=== PATIENT | male | born 1935 | race African-American/Black ===

== ENCOUNTER 2021-02-08 08:54 | Inpatient (IN) | payer OTHER ==
[~2021-02-08] VITALS: Ht 162.6 cm; Wt 77.1 kg
--- NOTE | ~2021-02-08 | HC ---
[facility] [place] [address] CONSULTATION Name: EMILE VEGAS Room #: 205-P ADM IN M.R.#: [id number] Admission: 02/08/21 Attend Phys: Noé Elias MD Discharge: Date of : 37 Report #: [id number] THIS REPORT FOR: cc: Porfirio Lewis MD, Eric K. MD Khosla, Parveen K. MD ~ DATE OF SERVICE: 02/08/2021 HISTORY OF PRESENT ILLNESS: This is an 85-year-old male patient who was seen by me because of the right sided weakness. He is a poor historian. Most of the history is from the records. It looks like this patient presented to [facility] with right sided weakness, but he was outside the window for any TPA that is what I get from the records. 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 If I understand the record correctly, they decided that the patient is not an intervention candidate and they admitted him and a routine consult was requested in this patient to continue neurology care in this patient. He is a poor historian, but looks like the history is pretty extensive in this patient. He apparently has a thrombus and he is chronically anticoagulated with Xarelto. He has a history of hypertension, hyperlipidemia, cardiomyopathy, chronic kidney disease, gout, glaucoma, prostate cancer s/p post radiation now. The patient has multiple comorbidities. He also has a prior history of [place]. REVIEW OF SYSTEMS: This was his relevant 14-point review of system, which was carried out. Review of system is also positive for gout and diabetes. PAST MEDICAL HISTORY: Positive for cardiac problems. FAMILY HISTORY: Unremarkable. SOCIAL HISTORY: He drinks very rarely. PHYSICAL EXAMINATION: Indicates he was alert, responsive, able to sometimes follow commands, sometimes not. I can tell his memory and his speech is affected. There is a stent on the left side. It was about grade II to grade III/V and I tried to do the position sense. He did not understand the instructions. That is all the examination I could carry out in this patient. His blood pressure was 151/80, respirations 18, pulse is 75, temperature is 97.9. LABORATORY DATA: White count is 6.6. CT angiogram does show a pretty significant stenosis on the left side. IMPRESSION AND RECOMMENDATIONS: This patient does appear to have a pretty significant disease on the left side, it is in the [place] [address] CONSULTATION Name: EMILE VEGAS Room #: [facility] IN .R.#: [id number] Admission: 02/08/21 Attend Phys: Noé Elias MD Discharge: Date of : 37 Report #: [id number] that is probably the cause of his stroke rather than any embolus from the heart. He is already on anticoagulation and aspirin has been added. A limited thing can be done in this patient except he can go to rehab when he stabilizes. Thank you very much for this referral. By: [id number] Jd Vivas MD /nt
[2021-02-08 08:54] VITALS: BP 184/98
[~2021-02-08 08:54] MED LIST: ADULT LOW DOSE81 MG PO; ANTIVERT25 MG PO; CARVEDILOL3.125 MG PO; COLCRYS 0.6 MG0.6 MG PO; COLCRYS0.6 MG PO; COMBIGAN EYE DR10 ML OPHTHALMIC; COUMADIN 1MG TAB1 M1 PO; COZAAR 25 MG TA25 M1 PO; FENOFIBRATE134 MG PO; OXYCODONE-ACET1 EACH PO; RAPAFLO8 MG PO; SIMVASTATIN40 MG PO; TIMOLOL MA0.5 %/5 M2 OPHTHALMIC; TRAVATAN Z5 ML OPHTHALMIC; ULTRAM 50MG TAB50 MG PO; XARELTO20 MG PO; ZESTRIL5 MG PO
[2021-02-08 09:06] LABS: ABSOLUTE NEUTROPHILS 7.4 thou/uL (1.4-8.2); BASOPHILS 0.3 % (0.0-2.0); EOSINOPHILS 0.3 % (0.0-3.0); HEMATOCRIT 50.1 % (42.0-52.0); HEMOGLOBIN 16.2 gm/dL (14.0-18.0); LYMPHOCYTES 18.3 % (24.0-44.0); MCH 28.7 pg (26.0-34.0); MCHC 32.4 g/dL (28.0-37.0); MCV 88.6 fL (80.0-100.0); MONOCYTES 7.6 % (1.0-8.0); PLATELET COUNT 202 thou/uL (150-400); POLYS 73.5 % (36.0-66.0); RBC 5.66 mil/uL (4.50-6.00); RDW 14.6 % (10.5-14.5); WBC 10.1 thou/uL (4.0-11.0)
[2021-02-08 09:16] LABS: CALCIUM 9.1 mg/dL (8.5-10.1); CREATININE 1.2 mg/dL (0.7-1.3); POTASSIUM 3.7 mmol/L (3.5-5.1)
[2021-02-08 09:33] LABS: ALBUMIN 3.6 g/dL (3.4-5.0); TOTAL BILIRUBIN 1.2 mg/dL (0.2-1.0)
[2021-02-08 09:41] LABS: APTT 31.5 Seconds (24.5-32.8); INR 1.02; PROTIME 11.1 Seconds (10.5-12.1)
--- NOTE | 2021-02-08 10:04 | NUR ---
SWALLOW STUDY DEFERRED AT THIS TIME D/T PT NIH SCORE AND DYSPHAGIA.
[2021-02-08] MEDS ORDERED: CARVEDILOL6.25 M1 PO (12:27)
[2021-02-08] MEDS ORDERED: JANUVIA100 MG PO (12:27)
[2021-02-08] MEDS ORDERED: LOSARTAN POTASS50 MG PO (12:27)
[2021-02-08 12:33] VITALS: BP 149/87
--- NOTE | 2021-02-08 12:58 | EKG ---
[address] [address] [facility] [place] [address] ELECTROCARDIOGRAM REPORT Name: EMILE VEGAS Room #: [facility] [id number] Admission: 02/08/21 Attend Phys: Discharge: Date of : 39 Report #: [id number] [facility] ED Test Date: 2021-02-08 Test Time: 08:56:11 Pat Name: EMILE VEGAS Department: Room: Gender: M Seo Consultant: BUSTER : [id number] Requested By: Dale Lomeli Order Number: [id number] MD: Jhon Solares Measurements Intervals Mary [place] Rate: 90 P: 111 IN: 189 QRS: -19 QRSD: 107 T: 155 QT: 354 QTc: 433 Interpretive Statements Sinus rhythm LVH with secondary repolarization abnormality Compared to ECG 03/29/2014 22:29:46 Poor R-wave progression no longer present T-wave abnormality no longer present Electronically Signed On 02-08-2021 12:58:49 CDT by Jhon Solares [email or web address] <ELECTRONICALLY SIGNED> By: Jhon Solares MD, [facility] 02/08/21 1258 [phone] Jhon Solares MD, FACC /EPI
[2021-02-08 13:13] VITALS: BP 133/80
[2021-02-08 13:30] VITALS: BP 133/79
--- NOTE | 2021-02-08 17:31 | NUR ---
[age] YEAR OLD MALE ADMITTED TO 2N ROOM 205. PT WAS BROUGHT INTO THE ER PER DAUGHTER THIS MORNING DUE TO HAVING SLURRED SPEECH AND WEAKNESS. PT IS ALERT AND ORIENTED TIMES FOUR. VSS. PT DENIES PAIN/SOA. PT NPO AT THIS TIME. PT SON AND DAUGHTER AT BEDSIDE DURING ADMISSION ASSESSMENT. WILL CONTINUE TO MONITOR.
[2021-02-08 19:54] VITALS: BP 142/62
[2021-02-09 00:05] VITALS: BP 151/80
--- NOTE | 2021-02-09 02:44 | NUR ---
PT IS A/O X4 AND IS ON BEDREST DUE TO RIGHT SIDED WEAKNESS. PT IS ON ROOM AIR. VSS. AFEBRILE. SR ON THE MONITOR. DID HAVE AN 8 BEAT RUN OF VTACH. STRIP IS PRINTED AND PLACED IN CHART. ASYMPTOMATIC. NOTED EXPRESSIVE APHASIA AND DYSPHAGIA. HAS NOT HAD ANYTHING TO EAT OR DRINK THIS SHIFT DUE TO COUGHING AND INABILITY TO SWALLOW WITHOUT COUGHING. VOIDS PER URINAL WITH ASSISTANCE. NO BM THIS SHIFT. PT IS PLEASANT AND COOPERATIVE. VISITED WITH SON AND DAUGHTER IN THE START OF THE SHIFT. DENIES C/O PAIN OR DISCOMFORT. FALL PRECAUTIONS IN PLACE,CALL LIGHT IS WITHIN REACH.
[2021-02-09 05:17] LABS: CALCIUM 9.1 mg/dL (8.5-10.1); CREATININE 1.2 mg/dL (0.7-1.3); POTASSIUM 3.7 mmol/L (3.5-5.1)
[2021-02-09 05:29] LABS: ABSOLUTE NEUTROPHILS 4.2 thou/uL (1.4-8.2); BASOPHILS 0.2 % (0.0-2.0); HEMATOCRIT 45.8 % (42.0-52.0); LYMPHOCYTES 26.8 % (24.0-44.0); MCH 29.4 pg (26.0-34.0); MCHC 32.8 g/dL (28.0-37.0); MCV 89.6 fL (80.0-100.0); MONOCYTES 8.6 % (1.0-8.0); PLATELET COUNT 194 thou/uL (150-400); POLYS 63.4 % (36.0-66.0); RBC 5.11 mil/uL (4.50-6.00); RDW 14.8 % (10.5-14.5); WBC 6.6 thou/uL (4.0-11.0)
[2021-02-09 05:44] LABS: CHOLESTEROL 162 mg/dL (<200); HDL CHOLESTEROL 31 mg/dL (>40); LDL CHOLESTEROL 111 mg/dL (<100); TC:HDL 5.2 Ratio (Not establshd); TRIGLYCERIDE 101 mg/dL (<150); VLDL 20 mg/dL (<40)
[2021-02-09 06:03] LABS: SERUM ASSESSMENT Clear
[2021-02-09 07:15] VITALS: BP 116/72
[2021-02-09 09:18] LABS: FOLIC ACID 7.1 ng/mL (8.6-58.9)
--- NOTE | 2021-02-09 09:41 | NUR ---
PERFORMANCE CONSULTANT TO SEE PATIENT. I RESPONDED TO THE STROKE ACTIVATION YESTERDAY IN THE ER. PT HAD A NIHSS OF 7 AT THAT TIME. TODAY HE APPEARS TO HAVE MORE SEVERE SX. HIS SPEECH IS NEARLY UNINTELLIGIBLE. MODERATE TO SEVERE FACIAL DROOP. PT DID MOVE LEFT UPPER EXT HOWEVER IT DID NOT APPEAR PURPOSFUL. PT LEANING TO LEFT WELL IN CHAIR. DAUGHTER AT BEDSIDE. EDUCATED DAUGHTER ON THE WAXING AND WANING OF SX WITH A CVA. PT ALSO AT BEDSIDE WORKING WITH PATIENT. STROKE EDUCATION BOOKLET GIVEN TO DAUGHTER WITH CURRENT LAB RESULTS DOCUMENTED WITHIN. PLAN FOR MRI TODAY. WILL CONTINUE TO FOLLOW.
[2021-02-09 11:20] VITALS: BP 139/75
--- NOTE | 2021-02-09 14:04 | 2DMMODE ---
[facility] [place] [address] 2 D/M-MODE ECHOCARDIOGRAM Name: EMILE VEGAS Room #: 205-P ADM IN M.R.#: [id number] Admission: 02/08/21 Attend Phys: Noé Elias MD Discharge: Date of : 37 Report #: [id number] THIS REPORT FOR: cc: Porfirio Lewis MD, Eric K. MD Santiago, Patrick MD FAC ~ APPROVED REPORT Patient Location: Bedside Room #: 205 Stress Nurse: Extremely difficult and limited echo attempted. Very limited views appear to show abnormal left ventricular function. Diminished systolic function, unable to assess ejection fraction [place] appears to be akinetic No pericardial effusion Unable to make further comments Will proceed with Transesophageal Echocardiogram. Conclusion <ELECTRONICALLY SIGNED> By: Jhon Solares MD, FACC 02/09/211402 02 02 Jhon Solares MD, FACC /INF
--- NOTE | 2021-02-09 14:09 | TEE ---
[facility] [place] [address] TRANSESOPHAGEAL ECHOCARDIOGRAM Name: EMILE VEGAS Room #: 205-P ADM IN M.R.#: [id number] Admission: 02/08/21 Attend Phys: Noé Elias MD Discharge: Date of : 37 Report #: [id number] THIS REPORT FOR: cc: Porfirio Lewis MD, Eric K. MD Santiago, Patrick MD [facility] ~ APPROVED REPORT Study performed: 02/09/2021 13:09:39 EXAM: Comprehensive 2D, Doppler, and color-flow Echocardiogram Patient Location: In-Patient Room #: 205 Status: routine BSA: 1.83 HR: 72 bpm BP: 122/61 mmHg Rhythm: NSR Other Information Study Quality: Good Indications CVA/TIA History of left ventricular thrombus Echo Enhancing Agent Indication: Rule out Shunt Agent(s) / Amount(s) Used: Agitated Saline 7 cc Procedure After obtaining informed consent, patient underwent transesophageal echo in the [employer]. Type of Sedation : Conscious Sedation Sedation was administered by Nurse. Sedation start time: 1317 Case end Time: 1325 Sedation was achieved intravenously with: Versed (2 mg) Fentanyl (50 mcg) Transesophageal probe was inserted and advanced into esophagus without difficulty by Jhon Solares MD. Echo enhancement indication: R/O Septal defect. Echo enhancement agent administered: Agitated Saline The GRICELDA was performed without complications. [facility] [address] [place] [address] TRANSESOPHAGEAL ECHOCARDIOGRAM Name: EMILE VEGAS Room #: 205-P ADM IN M.R.#: [id number] Admission: 02/08/21 Attend Phys: Noé Elias, Discharge: Date of : 37 Report #: [id number] Throughout the procedure, the blood pressure, pulse oximetry, cardiac rhythm, and rate were monitored. The patient tolerated the procedure without adverse effects. Recovery from conscious sedation was uneventful and vital signs were stable. Left Ventricle The left ventricle is normal size. There is normal left ventricular wall thickness. Left ventricular ejection fraction is moderately decreased. Large apical thrombus measuring 3cm x 4cm. LVEF is 35%. Right Ventricle The right ventricle is normal size. The right ventricular systolic function is normal. Atria The left atrium size is normal. Interatrial septum is intact without evidence of ASD or PFO. The right atrium size is normal. Aortic Valve The aortic valve is normal in structure. No aortic regurgitation is present. There is no aortic valvular stenosis. Mitral Valve The mitral valve is normal in structure. Trace mitral regurgitation. No evidence of mitral valve stenosis. Tricuspid Valve The tricuspid valve is normal in structure. There is no tricuspid valve regurgitation noted. Pulmonic Valve The pulmonary valve is normal in structure. There is no pulmonic valvular regurgitation. Great Vessels The aortic root is normal in size. Pericardium There is no pericardial effusion. <Conclusion> Timeout was performed Consent was obtained After proper sedation esophageal probe was advanced without [facility] [address] [place] [address] TRANSESOPHAGEAL ECHOCARDIOGRAM Name: EMILE VEGASALD Room #: 205-P [facility] IN M.R.#: [id number] Admission: 02/08/21 Attend Phys: Noé Elias, Discharge: Date of : 37 Report #: [id number] difficulty. Normal left ventricle size/wall thickness Ejection fraction 35% Akinetic apex/distal septum Large/calcified apical clot -3.00 cm x 4.00 cm Left atrial appendage small, no obvious clot detected Normal right ventricle size/function Normal aortic valve structure and function Trace of mitral valve insufficiency No pericardial effusion No evidence of ASD/VSD by color flow/bubble study Normal aortic root size Mild calcification throughout the aorta Patient tolerated the procedure well <ELECTRONICALLY SIGNED> By: Jhon Solares MD, FACC 02/09/218 07 07 Jhon Solares MD, FACC /INF
--- NOTE | 2021-02-09 14:33 | NUR ---
AUTHORIZATION FOR ACUTE REHAB STAY REQUESTED THIS DATE FROM [facility]. PATIENT HAS A MEDICARE PPO PRODUCT AND THE TAX ID NUMBER IS IN NETWORK FOR THE PATIENT. CLINICAL INFORMATION SENT. WILL AWAIT INSURANCE RESPONSE. THANK YOU FOR THIS REFERRAL.
--- NOTE | 2021-02-09 14:36 | NUR ---
PT TOLERATED GRICELDA WELL. PROCEDURE COMPLETED AT 1330. TRANSFER BACK TO CCU AT 1445. VSS. HR 52; BP 137/63; RR 20; SAT 95% ON RA. PT AWAKE AND ALERT. REPORT TO QUAN ALBRECHT. NEW IV STARTED IN AQUATIC LABORER HOLDING 20 GAUGE TO RT FOREARM. RT AC IV FELL OUT. FLUID BOLUS COMPLETED EN ROUTE DOWN TO AQUATIC LABORER. AND 200 CC NS INFUSED DURING PROCEDURE
[2021-02-09 15:34] VITALS: BP 115/75
--- NOTE | 2021-02-09 18:11 | NUR ---
met with patient and dtr at bedside. Patient admits with CVA. 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 Used no assisitive device. Cont to drive. cooked meals, grocery shop, independent with bathing. Dtr lives nearby. Reviewed acute rehab process. Dtr wants to tour acute rehab [facility]. Left message with admissions. Reviewed other options. dtr reports she is familiar with [facility] acute rehab as family member recently ezra. [facility]on in process of eval. Dtr to discuss with her brother.
[2021-02-09 20:45] VITALS: BP 136/77
[2021-02-09 23:39] VITALS: BP 145/95
[2021-02-10 01:06] LABS: GLYCOHEMOGLOBIN (HGB A1C) 6.3 % (4.8-5.6)
--- NOTE | 2021-02-10 02:19 | NUR ---
ASSUMED PT CARE AT 1900, PT IS AWAKE, ALERT AND ORIENTED, NIH SCORE O7 7, DENIES PAIN OR SOB, ASSESSMENTS CHARTED, SR/SB ON TELE, VSS, REMAINS NPO, STARTED ON FLUIDS FOR HYDRATION, BS 83, NO NEEDS AT THIS TIME, WILL CONTINUE TO MONITOR AND FOLLOW POC
[2021-02-10 04:45] VITALS: BP 150/84
[2021-02-10 06:49] LABS: URINE BLOOD TRACE (Negative); URINE CLARITY CLEAR; URINE GLUCOSE-RANDOM* NEGATIVE (Negative); URINE KETONES 2+ (Negative); URINE LEUKOCYTES-REFLEX NEGATIVE (Negative); URINE NITRITE-REFLEX NEGATIVE (Negative); URINE PROTEIN (DIPSTICK) NEGATIVE (Negative); URINE SPECIFIC GRAVITY >= 1.030 (1.005-1.035); URINE UROBILINOGEN >= 8.0 E.U./dl (0.2-1.0)
[2021-02-10 06:50] LABS: URINE COLOR AMBER
[2021-02-10 06:52] LABS: ICTOTEST (BILI CONFIRMATORY) Negative (Negative); URINE BILIRUBIN NEGATIVE (Negative)
[2021-02-10 07:35] VITALS: BP 140/68
[2021-02-10 11:03] VITALS: BP 133/77
[2021-02-10] MEDS ORDERED: MIRALAX17 GM PO (11:28)
[2021-02-10] MEDS ORDERED: TYLENOL325 MG PO (11:28)
[2021-02-10] MEDS ORDERED: CARVEDILOL3.125 MG PO (11:28)
[2021-02-10] MEDS ORDERED: PROTONIX 20 MG20 MG PO (11:28)
--- NOTE | 2021-02-10 13:11 | NUR ---
PATIENT WAS APPROVED FOR INPATIENT ACUTE REHAB ON 02/10/21 BY ANNABELLE ALONZO. AUTH # [id number]. UPDATE REQUIRED ON 02/17/21. FAX #[phone].
--- NOTE | 2021-02-10 13:56 | NUR ---
Kademe walter advised that ins auth rec'd. They can accept today if stable to rm 513. The attending, pt and dtr were notified. Pt cleared for dc to rehab today. Dtr given unit number and rm number as well as aware of team conf on Sunday.
[2021-02-10 16:03] VITALS: BP 158/76
== END 2021-02-10 17:20 | DRG 64 ==
LOC: ER 08:54 → 2N 11:40 → ER 13:21 → 2N 02-10 17:20
PROVIDERS: Emergency Medicine; Nurse Practitioner; ADMIT Internal Medicine; ATTEND Internal Medicine
PROC: B24BZZ4 Ultrasonography of Heart with Aorta, Transesophageal (ICD-10-PCS; principal; 2021-02-09)
DX: I63.512 Cerebral infarction due to unspecified occlusion or stenosis of left middle cerebral artery (principal); R65.11 Systemic inflammatory response syndrome (SIRS) of non-infectious origin with acute organ dysfunction; I42.9 Cardiomyopathy, unspecified; I50.20 Unspecified systolic (congestive) heart failure; G81.91 Hemiplegia, unspecified affecting right dominant side; I13.0 Hypertensive heart and chronic kidney disease with heart failure and stage 1 through stage 4 chronic kidney disease, or unspecified chronic kidney disease; Z20.822 Contact with and (suspected) exposure to COVID-19; E78.00 Pure hypercholesterolemia, unspecified; I25.10 Atherosclerotic heart disease of native coronary artery without angina pectoris; M10.9 Gout, unspecified; N18.9 Chronic kidney disease, unspecified; R47.1 Dysarthria and anarthria; E11.22 Type 2 diabetes mellitus with diabetic chronic kidney disease; E78.5 Hyperlipidemia, unspecified; R13.10 Dysphagia, unspecified; Z60.2 Problems related to living alone; R53.81 Other malaise; E53.8 Deficiency of other specified B group vitamins; Z85.46 Personal history of malignant neoplasm of prostate; I25.2 Old myocardial infarction; Z87.891 Personal history of nicotine dependence; Z92.3 Personal history of irradiation; Z79.82 Long term (current) use of aspirin; Z79.899 Other long term (current) drug therapy
CPT/HCPCS: 10081

== ENCOUNTER 2021-02-10 14:23 | Inpatient (IN) | payer OTHER ==
[~2021-02-10] VITALS: Ht 167.6 cm; Wt 70.8 kg
[~2021-02-10 14:23] MED LIST changes: +CARVEDILOL6.25 M1 PO; +JANUVIA100 MG PO; +LOSARTAN POTASS50 MG PO; +MIRALAX17 GM PO; +PROTONIX 20 MG20 MG PO; +TYLENOL325 MG PO
[2021-02-10 19:49] VITALS: BP 151/80
--- NOTE | 2021-02-11 02:55 | NUR ---
PATIENT CARE WAS RESUMED AT 1900. HE IS ALERT AND ABLE TO VERBALIZE HIS NEEDS. LUNGS ARE CLEAR BS ACTUVE X4 QUADS. MAX ASSIT WITH CARE. SHE IS RESTNG IN BED. HE USES URINAL SPEECH IS VERY SLOW AND SHE IS ON NECTAR THICK LIQUD.HE DENIES [place] PAINS AT THIS TIME. CALL LIGHT AT REACH.
[2021-02-11 06:56] LABS: HEMATOCRIT 44.4 % (42.0-52.0); HEMOGLOBIN 14.6 gm/dL (14.0-18.0); MCH 29.5 pg (26.0-34.0); MCHC 32.9 g/dL (28.0-37.0); MCV 89.4 fL (80.0-100.0); RBC 4.96 mil/uL (4.50-6.00); RDW 14.5 % (10.5-14.5); WBC 7.5 thou/uL (4.0-11.0)
[2021-02-11 07:19] LABS: CALCIUM 8.7 mg/dL (8.5-10.1); POTASSIUM 3.5 mmol/L (3.5-5.1)
[2021-02-11 08:30] VITALS: BP 143/101
--- NOTE | 2021-02-11 09:11 | NUR ---
PT SITTING UP WITH THERAPY ON SIDE OF BED THIS AM. PT NEEDED ASSISTED WITH RT ARM AND LEG. PT ABLE TO SIT SELF UP WITH LEFT ARM HOLDING ONTO THE RAIL. PT WAS ABLE TO TAKE MEDS THIS AM CRUSHED IN APPLESAUCE PT FOLLOWS DIRECTIONS TO TURN HEAD TO RT WHEN SWALLOWING. PT LUNGS CLEAR. NO SIGNS OF EDEMA. PT IS ON NECTOR THICK LIQUIDS AND TOLERATING WELL. PT DOES VOID PER URINAL AND IS TEA COLOR.
--- NOTE | 2021-02-11 09:12 | NUR ---
ADM TYLENOL 325MG 2 TABS PO FOR PAIN TO RT ARM OF 7 ON 1-10 SCALE.
--- NOTE | 2021-02-11 11:29 | NUR ---
met with patient and son jose at bedside. patient admits with CVA. Patient resides in indpendent home with all needs on one level. He has a basement that son reports he does not need to go to basement. 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 Jose and serge Lopez are primary contacts. Patient has children from first who live out of town. Second . Casemgt following for dc planning. Discussed team conferencce with son at bedside.
--- NOTE | 2021-02-11 18:17 | NUR ---
ADM TYLENOL 325MG 2 TABS PO FOR PAIN TO RT ARM. PT FEEDING SELF WITH LEFT ARM. RAISED RT ARM UP ON A PILLOW. PT KNOW TO TURN HEAD TO RT WHEN SWALLOWING. PT WAS UP X2 TO BSC TO VOID. PT THOUGHT HE WOULD HAVE A BM, DID NOT.
[2021-02-11 19:39] VITALS: BP 137/70
--- NOTE | 2021-02-12 02:17 | NUR ---
Pt is alert/oriented, pleasant answers questions appropriately, medications given crushed, Rt side weakness, thicken liquids offered did not want. Encouraged pt to drink. HRR, Lungs clear, BS+ x 4 Q. No other issues or concerns.
[2021-02-12 08:00] VITALS: BP 149/83
--- NOTE | 2021-02-12 12:49 | NUR ---
ASSUMED CARE OF PATIENT AT 0700, PATIENT IS ALERT AND ORIENTED X3, PATIENT TOOK MEDICATION CRUSHED WITH PUDDING, COMPLAINED OF PAIN AND TYLENOL PRN GIVEN, ASSESSMENT COMPLETED WITH ACTIVE BOWEL SOUND WITH SOFT ABDOMEN, BREATH SOUND CLEAR, REG HR, RR EVEN NONLABORED RA, SKIN INTACT, NO EDEMA NOTED, PATIENT USES THE URINAL BY THE BED SIDE, PATIENT TURE HEAD TO THE RIGHT WITH EACH SWALLO. WILL CONTINUE TO MONITOR
[2021-02-12 21:30] VITALS: BP 122/63
--- NOTE | 2021-02-13 05:14 | NUR ---
PT LYING IN BED. VOIDING PER URINAL. TYLENOL PROVIDING PAIN RELIEF. RESTING COMFORTABLY. NO NEEDS VOICED. CALL LIGHT WITHIN REACH. FREQUENT OBSERVATION.
[2021-02-13 07:15] VITALS: BP 133/73
--- NOTE | 2021-02-13 17:18 | NUR ---
PT SPEECH IS SLURRED. PT MAX ASSIST TO BSC. PT IS TOTAL FEED D/T STROKE. PT IS A&O. WILL CONTINUE TO MONITOR
[2021-02-13 19:24] VITALS: BP 132/71
--- NOTE | 2021-02-14 00:10 | NUR ---
PT ASSESSMENT COMPLETED AND VSS. MEDS GIVEN ORDERED AND WELL TOLERATED. FALL PRECAUTIONS IN PLACE. UP TO THE BSC WITH 2 MAX ASST. PT WAS ABLE TO REMOVE HIS SHIRT WITH ASST. SUPPORTIVE DAUGHTER AT BEDSIDE EARLY DURING SHIFT. PT C/O TAILBONE PAIN SO REPOSITIONED PT FREQUENTLY. PT C/O PAIN IN HIS RIGHT WRIST AND IT IS SLIGHTLY RED. WILL INFORM DAY RN. PT IS NOT DRINKING A LOT. PT COUGHED VERY HARD AFTER TAKING A SIP OF NECTOR THICK LIQUID. WILL HAVE SPEECH RECHECK PT IN THE MORNING. WILL INFORM DAY RN THAT PT FLUID INTAKE NEEDS TO BE MONITORED CLOSELY. ASST WITH REPOSIION FOR COMFORT. SLEEPING ON AND OFF. WILL CONTINUE TO MONITOR FREQUENTLY.
[2021-02-14 16:22] LABS: BASOPHILS 0.5 % (0.0-2.0); HEMATOCRIT 43.3 % (42.0-52.0); HEMOGLOBIN 14.1 gm/dL (14.0-18.0); LYMPHOCYTES 16.3 % (24.0-44.0); MCH 29.1 pg (26.0-34.0); MCHC 32.6 g/dL (28.0-37.0); MCV 89.3 fL (80.0-100.0); MONOCYTES 9.8 % (1.0-8.0); PLATELET COUNT 225 thou/uL (150-400); POLYS 72.4 % (36.0-66.0); RBC 4.84 mil/uL (4.50-6.00); WBC 9.7 thou/uL (4.0-11.0)
[2021-02-14 16:39] LABS: CALCIUM 9.2 mg/dL (8.5-10.1); CREATININE 1.4 mg/dL (0.7-1.3); MAGNESIUM 2.4 mg/dL (1.8-2.4); POTASSIUM 4.5 mmol/L (3.5-5.1)
--- NOTE | 2021-02-14 19:22 | NUR ---
PT HAD TROUBLE SWALLOWING TODAY. VIDEO SWALLOW OBTAINED PT IS NOW ON PDDING THICK LIQUIDS, OOB FOR ALL MEALS, 100% SUPERVISION WITH ALL INTAKE. PT HAS TO HAVE DRINKS VIA SPOON, SWALLOW NURSE/CLERK TELEGRAPH SERVICE/FAMILY TO FEEL SWALLOW THEN HAVE PT DO A DRY SWALLOW THEN CAN HAVE ANOTHER SWALLOW OR BITE.
[2021-02-14 19:23] VITALS: BP 123/68
--- NOTE | 2021-02-15 01:43 | NUR ---
PT ASSESSMENT COMPLETED AND VSS. MEDS GIVEN ORDERED AND WELL TOLERATED. FALL PRECAUTIONS IN PLACE. SUPPORT DAUGHTER AND SON VISITING EARLY DURING THE EVENING WITH PATIENT. UP TO THE BSC WITH 2 ASST/GAIT. PT VERY WEAK. ASST PT WITH SWALLOWING SPOONS FULL OF PUDDING THICK LIQUIDS. PT DID STILL COUGH SOME EVEN WITH NEW SWALLOWING PARAMETERS. VOIDING PER URINAL WITH ASST. SLEEPING WELL AT THIS TIME. ELEVATED R HAND/WRIST WITH GOUT USING PILLOW. WILL CONTINUE TO MONITOR FREQUENTLY. REPOSITIONED PT USING PILLOW FOR COMFORT.
[2021-02-15 04:07] LABS: CALCIUM 8.9 mg/dL (8.5-10.1); POTASSIUM 3.9 mmol/L (3.5-5.1)
[2021-02-15 08:00] VITALS: BP 114/46
--- NOTE | 2021-02-15 13:02 | NUR ---
team meeting, recommendation: low air mattress, new order. moderate to severe cognition and memory. poor appetite , 100% supervision and queuing to swallow. puree with pudding thick liquids. started vital stim today with speech therapy today. Re team
[2021-02-15 19:40] VITALS: BP 119/74
--- NOTE | 2021-02-16 01:34 | NUR ---
PT ALERT AND ORIENTED X 4. VOIDING SMALL AMTS DARK YELLOW URINE PER URINAL. NEEDS ASSISTANCE TO USE URINAL. HAS BEEN INCONT OF SEVERAL LIQUID LIGHT BROWN STOOLS. HAD SENNA ON DAY SHIFT. PT TOOK HS MEDS CRUSHED IN PUDDING WITHOUT DIFFICULTY. PT DENIES PAIN OR DISCOMFORT. BED ALARM ON FOR SAFETY. PT APPEARS TO BE SLEEPING ON HOURLY ROUNDS.
[2021-02-16 08:00] VITALS: BP 132/51
--- NOTE | 2021-02-16 08:31 | NUR ---
ASSISTED PT TO BSC THIS AM AND PT HAD SMALL LIQUID BROWN BM. PT LUNGS CLEAR. PT HAS WEAKNESS TO RUE AND RLE. PT DENIES PAIN AT THIS TIME. PT WAS UP TO W/C X1 ASSIST. PT WORKING WITH ST. PT ABLE TO SWALLOW MEDS CRUSHED IN APPLESAUCE. PT DID SWALLOW A CAPSULE IN APPLESAUCE. PT IS LEARNING TO SWALLOW WITHOUT COUGHING OR RUNNING NOSE.
[2021-02-16 19:20] VITALS: BP 137/69
--- NOTE | 2021-02-17 02:44 | NUR ---
ASSUMED CARE OF PT AT 1930 ON 02/16/21. PT IS A&OX4. IS ON ROOM AIR. DENIES PAIN. IS STABLE. CONTINUES WITH RIGHT SIDED WEAKNESS & FACIAL DROOP. CONTINUES WITH SWOLLOW PRECAUTIONS, PUREED DIET, NO STRAWS, & PUDDING THICK FLUIDS.TAKES PILLS CRUSHED IN APPLESAUCE. PT WOULD ONLY TAKE 2 SPOONFULS OF THICKENED WATER, BUT REFUSED TO DRINK MORE. STATED, "IT DOESN'T HAVE A TASTE." DOESN'T ENJOY THE CONSISTENCY. EDUCATION PROVIDED. PT IS ABLE TO TURN SELF IN BED. NEEDS TO ASSISTANCE BEING BOOSTED UP. IS UP WITH 1 ASSIST, GB TO BSC. FALL PRECAUTIONS & HOURLY ROUNDING CONTINUED THIS SHIFT. LABS & VITALS REVIEWED. WILL CONTINUE TO MONITOR. CALL LIGHT WITHIN REACH. CALLS OUT APPROPRIATELY FOR ASSISTANCE.
[2021-02-17 06:07] LABS: ABSOLUTE NEUTROPHILS 4.5 thou/uL (1.4-8.2); BASOPHILS 0.5 % (0.0-2.0); EOSINOPHILS 1.7 % (0.0-3.0); HEMATOCRIT 43.5 % (42.0-52.0); HEMOGLOBIN 14.1 gm/dL (14.0-18.0); LYMPHOCYTES 22.3 % (24.0-44.0); MCHC 32.3 g/dL (28.0-37.0); MCV 89.6 fL (80.0-100.0); MONOCYTES 7.5 % (1.0-8.0); PLATELET COUNT 220 thou/uL (150-400); RBC 4.85 mil/uL (4.50-6.00); RDW 14.2 % (10.5-14.5); WBC 6.6 thou/uL (4.0-11.0)
[2021-02-17 06:36] LABS: CALCIUM 9.2 mg/dL (8.5-10.1); CREATININE 1.2 mg/dL (0.7-1.3); MAGNESIUM 2.6 mg/dL (1.8-2.4); POTASSIUM 3.9 mmol/L (3.5-5.1)
[2021-02-17 07:15] VITALS: BP 111/74
--- NOTE | 2021-02-17 09:45 | NUR ---
PT UP THIS AM TO [facility] AND VOIDED AND HAD MED SOFT BM. PT LUNGS CLEAR. PT HAS FACIAL DROOP TO LEFT SIDE. PT HAS SOME SLURRED SPEECH. PT HAS RT SIDE WEAKNESS. RT HAND IS GETTING STRONGER. PT UP X1 ASSIST. PT HAS NO EDEMA. PT TAKES MEDS CRUSHED IN PUDDING THICK LIQUIDS. PT DOES NOT LIKE THE PUDDING THICK LIQUIDS. PT MENTIONING GOING HOME AND SITTING IN RECLINER. PT DOES CALL LIGHT APPROPRIATLY. NO SKIN BREAKDOWN, PT HAS AIR PUMP FOR BED.
[2021-02-17 20:01] VITALS: BP 141/75
--- NOTE | 2021-02-18 00:03 | NUR ---
PT ASSESSMENT COMPLETED AND VSS. MEDS GIVEN ORDERED AND WELL TOLERATED. FALL PRECAUTIONS IN PLACE. UP TO THE BSC WITH ASST/GAIT. PT IS TRANSFERING MUCH BETTER TONIGHT. HIS VOICE AND SPEECH ARE CLEARER. PUDDING THICK LIQUIDS WELL TOLERATED USING HIS SWALLOW PLAN. VERY SLOW PROCESS. VOIDING PER URINAL WITH ASST - DARK URINE. 0 BM. PT HAD CONCERNS ABOUT HIS CARE. SHARED INFORMATION WITH NURSE MONOMER RECOVERY OPERATOR JESUS. SLEEPING WELL. GAVE REPORT TO ONCOMING RN DEWEY AND SHE WILL CONTINUE TO MONITOR THE PT THROUGH THE NIGHT.
--- NOTE | 2021-02-18 01:59 | NUR ---
PT LYING IN BED. VOIDING PER URINAL. DENIES PAIN. FREQUENT OBSERVATION.
[2021-02-18 07:15] VITALS: BP 126/61
--- NOTE | 2021-02-18 08:21 | NUR ---
Re team, cont to work with therapy. Still requiring 100% supervision and queuing for all meals. Cont speech therapy. Will cont. following as needed for dc needs.
--- NOTE | 2021-02-18 08:27 | NUR ---
Re team with anticipated dc 02/24, [facility]. Will cont.following as needed for dc needs.
--- NOTE | 2021-02-18 13:40 | PLAN ---
[facility] [place] [address] REHAB UNIT PLAN OF CARE Name: EMILE VEGAS Room #: 513-P ADM IN M.R.#: [id number] Admission: 02/10/21 Attend Phys: Romeo Cazares MD Discharge: Date of : 37 Report #: [id number] THIS REPORT FOR: cc: Pofririo Lewis MD, Eric K. MD Smithson,Romeo Gordon MD ~ DATE OF SERVICE: 02/13/2021 PROGRESS NOTE/OVERALL PLAN OF CARE HISTORY OF PRESENT ILLNESS: The patient was seen earlier. He was in no distress. His temperature this morning is 36.5, pulse 74, respirations 19, blood pressure 133/73. He has the acute cerebrovascular accident with right hemiparesis with very limited freight unloader on the right. He has problems lifting the right lower extremity antigravity. He has been involved in the therapy program. He is on a pureed diet with nectar thickened liquids. He has moderate cognitive deficits with severe memory deficits. Transfers have been mod assist, bed to wheelchair. He has ambulated up to 20 feet, mod assist with a front-wheeled walker. Lower body dressing is max assist with upper body dressing, max assist. ASSESSMENT: An 85-year-old male with the following problem list: 1. Acute cerebrovascular accident. 2. Right hemiparesis. 3. Dysphagia. 4. Dysarthria. 5. Right hand pain. 6. Hypertension. 7. History of left ventricular thrombus. 8. Congestive heart failure with ejection fraction 40-45% per 2014 echo. 9. Hyperlipidemia. 10. Glaucoma. PLAN: The overall plan of care is based on the pre-admit screen and information garnered from therapy assessments. 1. Estimated length of stay is probably 14-21 days. 2. Medical prognosis is reasonably good. 3. Anticipated interventions includes the interdisciplinary acute inpatient rehabilitation program. 4. Anticipated functional outcomes would be for the patient to become modified independent with transfers, mobility and ADLs so he can hopefully return back to the home setting. I am not sure if he will achieve independence, but at least maximize his overall independence level so he can return back to the home setting. There is a son in the area and will need to further assess assistance for him. 5. Discharge destination. He does live at home alone and [place] [address] REHAB UNIT PLAN OF CARE Name: EMILE VEGSA Room #: 513-P [facility]#: [id number] Admission: 02/10/21 Attend Phys: Romeo Cazares MD Discharge: Date of : 37 Report #: [id number] I mentioned above. 6. Expected therapy by discipline includes PT, OT and speech 1 hour per day each 5 days a week throughout the duration of the acute inpatient rehabilitation stay. ADDENDUM: The patient's prognosis for significant practical improvement within a reasonable period of time appears good. Given the patient's complex medical condition and risk of further medical complication, rehabilitation services could not be safely provided at a lower level of care such as a longterm facility. <ELECTRONICALLY SIGNED> By: Romeo Cazares MD 02/18/21 1340 [id number] Romeo Cazares MD /nt
[2021-02-18 19:53] VITALS: BP 149/77
--- NOTE | 2021-02-19 03:33 | NUR ---
02-18-21 CARE TRANSFERRED 1899. LATER PT AAOX1, VSS, RR EVEN AND NONLABORED ON RA. PT DENIES PAIN. PT IS WITHDRAWN, BUT BRIAN COOPERATIVE. LATER DURING MEDICATION ADMIN CRUSHED IN PUDDING PT NEEDS TO BE CUED FOR SECOND SWALLOWED (PALPATED). PT REPOSITION FOR COMFORT. PT WILL CONTINUE TO BE MONITOR.
[2021-02-19 04:35] LABS: ABSOLUTE NEUTROPHILS 4.3 thou/uL (1.4-8.2); BASOPHILS 0.4 % (0.0-2.0); EOSINOPHILS 1.7 % (0.0-3.0); HEMATOCRIT 43.5 % (42.0-52.0); HEMOGLOBIN 14.1 gm/dL (14.0-18.0); LYMPHOCYTES 25.2 % (24.0-44.0); MCHC 32.4 g/dL (28.0-37.0); MCV 89.5 fL (80.0-100.0); MONOCYTES 7.7 % (1.0-8.0); PLATELET COUNT 232 thou/uL (150-400); RBC 4.86 mil/uL (4.50-6.00); RDW 14.3 % (10.5-14.5); WBC 6.5 thou/uL (4.0-11.0)
[2021-02-19 04:46] LABS: CALCIUM 8.8 mg/dL (8.5-10.1); CREATININE 1.1 mg/dL (0.7-1.3); MAGNESIUM 2.3 mg/dL (1.8-2.4); POTASSIUM 3.7 mmol/L (3.5-5.1)
[2021-02-19 08:00] VITALS: BP 138/73
--- NOTE | 2021-02-19 10:21 | NUR ---
PT NEEDED ASSISTANCE WITH USING BSC. PT ABLE TO BEAR WT TO RLE. PT HAS WEAKNESS TO RUE. PT MEDS NEEDS TO BE CRUSHED AND PUT IN PUDDING OR APPLESAUCE. PT WAS ABLE TO SWALLOW MEDS WITHOUT ANY ISSUES. PT LUNGS CLEAR. PT HAD MED SOFT BROWN BM IN BSC AND SMALL AMT OF URINE. PT SPEECH IS SLURRED AND SLOW.
--- NOTE | 2021-02-19 13:00 | NUR ---
PT STILL SITTING UP IN W/C. PT DIDN'T EAT FOR DINNER. PT STATED HE DIDN'T LIKE THE TASTE AND IT ALL TASTE THE SAME. GAVE PT PUDDING THICK WATER WITH FRUIT PUNCH ENHANCER, PT STATED IT DIDN'T TASTE ANY BETTER. PT DID DRINK 1/4 OF THE CUP AND WANTED TO GO BACK TO BED. PT STATED HE WANTED TO GET BACK TO BED SINCE HE GOT UP. TOLD PT HE WOULD BE STRONGER IF HE WAS UP RATHER THAN IN THE CHAIR. PT ASKED HOW MUCH ENERGY IT WOULD TAKE TO BE UP RATHER THAN LAYING DOWN. PT WILL SEE THERAPY LATER THIS AFTERNOON AND WILL ENCOURAGE FLUIDS.
[2021-02-19 19:11] VITALS: BP 118/70
--- NOTE | 2021-02-20 00:31 | NUR ---
PT ALERT AND ORIENTED X 4. PT TOOK HS MEDS CRUSHED IN PUDDING WITHOUT DIFFICULTY. VOIDING PER URINAL. PT DENIES PAIN OR DISCOMFORT. BED ALARM ON FOR SAFETY. PT APPEARS TO BE SLEEPING ON HOURLY ROUNDS.
[2021-02-20 10:22] VITALS: BP 139/74
--- NOTE | 2021-02-20 11:47 | HC ---
[facility] [place] [address] CONSULTATION Name: EMILE VEGAS Room #: 513-P ADM IN M.R.#: [id number] Admission: 02/10/21 Attend Phys: Romeo Cazares MD Discharge: Date of : 39 Report #: [id number] THIS REPORT FOR: cc: Porfirio Lewis MD, Eric K. MD Deutch,Agusto Rodas. PhD ~ DATE OF SERVICE: 02/13/2021 NEUROBEHAVIORAL STATUS EXAMINATION DATE OF CONSULTATION: 02/13/2021 ATTENDING PHYSICIAN: Romeo Cazares M.D. CONVEYOR LOADER: Agusto Buchanan, PhD. 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 He presented with right hemiparesis, dysphagia, dysarthria, right hand pain, hypertension, history of an LV thrombus, congestive heart failure with an ejection fraction of 40-45%, hyperlipidemia, and glaucoma. A complete description of his medical condition and history can be found in his medical record. Neuropsychological consultation was requested to provide assistance in the assessment of cognitive and emotional status and to provide recommendations and services. Prior to this most recent admission, the patient is reported as living by himself in his own home. He has an 11th grade education. He was employed for the [employer] prior to his care home. The patient has been driving and managing his own meals. He has a daughter that lives nearby. He had two children. TECHNIQUES UTILIZED: Clinical interview, review of medical records, staff consultation and behavioral observation, mini mental status exam 2 standard version. EXAMINATION FINDINGS: The patient was alert and cooperative with the assessment. He described the reason for his hospitalization as having had a fall. Difficulty with verbal fluency are suggested. The patient is a right hemiparesis and is presenting with an aphasia. Auditory comprehension is satisfactory. Deficits are primarily in word finding and verbal fluency. Howwever, he also has decreased insight into the extent of his cognitive deficits. He was smoking approximately 1 pack of cigarettes daily. He does [facility] [address] [place] [address] CONSULTATION Name: EMILE VEGAS Room #: 513-P [facility] IN ..#: [id number] Admission: 02/10/21 Attend Phys: Romeo Cazares MD Discharge: Date of : 39 Report #: [id number] not report alcohol use or report problems with sleep, appetite, memory, word finding, anxiety or depression. His performance on the MMSE 2 brief version was extremely low with a raw score of 12/16. He was 3/3 for initial registration, 5/5 for orientation to time, 3/[address] and 1/3 for immediate recall of 3 items after a brief time delay and distraction. His performance improved on the standard version of the MMSE 2 with a raw score of 25 of 30. He was 5/5 for serial sevens, 2/2 for naming, 1/1 for repetition, 3/3 for comprehension. He could read and follow a single command and dictate a sentence. He has a right hemiparesis and drawing tasks and constructive ability was not assessed. The patient is presenting with deficits in memory and verbal fluency likely associated with vascular disease. Decreased insight places him at an increased safety risk. 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 RECOMMENDATIONS: The patient will require assistance in the management of medication finances and nutrition. Driving should be discontinued. He would benefit from a followup neuropsych assessment approximately 6 months following his stroke to clarify the severity of cognitive deficits and the extent of his recovery. Family education will be necessary for them to provide the adequate assistance for him to maintain safety in the home. Thank you very much for allowing me to provide the consultation on this patient. <ELECTRONICALLY SIGNED> By: Agusto Buchanan, PhD 02/20/21 [id number] Agusto Buchanan, PhD /nt
[2021-02-20 16:13] VITALS: BP 139/92
--- NOTE | 2021-02-20 18:19 | NUR ---
PT A&OX4. [facility] TO [facility] PT HAS TO HAVE ASSIST X2 WFTER BM FROM BSC BACK TO BED. PT NEEDS ASSIST WITH MILLER [facility] AND PULLING UP BRIEFS. PT IS FEEDING SELF WITH 100% SUPERVISION.
[2021-02-20 20:30] VITALS: BP 123/76
--- NOTE | 2021-02-21 00:34 | NUR ---
PT ALERT AND ORIENTED X 4. UP TO BSC WITH ASSIST X 1. VOIDING SMALL AMTS DARK YELLOW URINE. PT TAKES MEDS CRUSHED IN PUDDING. REFUSES PUDDING THICK LIQUIDS. PT DENIES PAIN OR DISCOMFORT. BED ALARM ON FOR SAFETY. PT APPEARS TO BE SLEEPING ON HOURLY ROUNDS.
[2021-02-21 05:31] LABS: CREATININE 1.3 mg/dL (0.7-1.3); POTASSIUM 3.6 mmol/L (3.5-5.1)
[2021-02-21 08:11] VITALS: BP 144/84
--- NOTE | 2021-02-21 08:30 | NUR ---
PT SITTING UP IN W/C WORKING WITH ST. PT STATED HE DIDN'T GET MUCH SLEEP LAST NIGHT. ASSISTED PT TO BSC THIS AM AND PT HAD SMALL AMT OF CONCENTRATED URINE. PT DIDN'T HAVE A BM. PT MOUTH AND TONGUE DRY. PT STILL ON PUDDING THICK CONSTITANCY. PT TOOK MEDS THIS AM CRUSHED IN ENSURE PUDDING. DENIES ANY PAIN. STILL WEAKNESS TO RT SIDE. PT ABLE TO TRANSFER WITH X1 ASSIST.
--- NOTE | 2021-02-21 08:48 | NUR ---
Please obtain current weight d/t poor intakes at meals; last weight 02/10.
[2021-02-21 19:44] VITALS: BP 132/78
--- NOTE | 2021-02-22 01:17 | NUR ---
Assumed care on 02/21/21 @ 1900, in bed with family at bedside. A&Ox4, drinks pudding thick liquid, encourage more fluid intake. Takes meds crushed in pudding. prn Tylenol given for Right arm pain. VSS, HRRR, Lungs CTA bilat, ABD hyperactive bowel sounds. Transfers to C with [id number] and gait belt. Ambulates with walker and gait belt, x1 assist. No IV access at this time. Fall precautions in place.
[2021-02-22 08:13] VITALS: BP 133/64
--- NOTE | 2021-02-22 08:15 | NUR ---
PT WORKING WITH ST THIS AM SITTING UP IN CHAIR. PT ABLE TO FEED SELF. PT TOOK MEDS IN THICKENED PUDDING WITH NOT ISSUES. PT LUNGS CLEAR, NO COUGH AT THIS TIME. PT STATED HE HAS PAIN ALL OVER THIS AM. PT HAS WEAKNESS TO RT SIDE. PT ABLE TO WALK WITH A WALKER X1 STAND-BY ASSIST.
--- NOTE | 2021-02-22 13:34 | NUR ---
team meeting, recommendation: cont. on altered diet, pudding thick, puree, assist. Still required assist and supervision with all meals. vital stim with speech. mod to severe cognition and memory deficits. dc / with supervision with all meals. will need to be able to get up and get to restroom. lack of initiation . hh ( pt, ot ,st with vital stim, nursing and sw). wc vs [facility].
[2021-02-22 19:39] VITALS: BP 113/76
--- NOTE | 2021-02-23 00:52 | NUR ---
Assumed care on 02/22/21 @ 1900, in bed Alert & Oriented x 3-4. VSS, HRRR, Lung sounds CTA bilat, ABD N x4Q. Drinks pudding thick liquids, Puree diet. Last BM on 02/20. Docusate provided for constipation and Tylenol for pain. Gait belt used when out of bed ambulating. Fall precautions observed, bed alarm set while in bed. Will continue to monitor for safety and comfort as per unit protocol.
[2021-02-23 08:30] VITALS: BP 112/67
--- NOTE | 2021-02-23 12:42 | NUR ---
PT ALERT AND ORIENTED TIMES FOUR. VSS. DENIES ANY PAIN/SOA AT THIS TIME. PT TOLERATES MEDS AND MEALS. PT WORKED WELL WITH PT/OT TODAY. PT PROGRESSING TOWRADS POC GOALS.
[2021-02-23 13:31] LABS: CALCIUM 9.3 mg/dL (8.5-10.1); CREATININE 1.4 mg/dL (0.7-1.3); MAGNESIUM 2.8 mg/dL (1.8-2.4); POTASSIUM 4.2 mmol/L (3.5-5.1)
--- NOTE | 2021-02-23 15:30 | NUR ---
Cm visited with daughter john via phone call. Passed on information from team meeting. Education on private duty list, senior blue book, assistance at home, alter diet, home health, adult day care, and skilled rehab. John and her brother work during the daytime hours and could be with devyn after work, going to check into private duty, that is their 1st choice and prefer him to be able to go home but in not going to look into skilled rehab. Daughter had question about ability karen and would like at referral for that. Cm passed on information to MIXING PLACE SUPERVISOR and MD for ability karen referral. Left resources in devyn rooms. Will cont following as needed for dc needs.
[2021-02-23 20:11] VITALS: BP 128/63
--- NOTE | 2021-02-24 00:16 | NUR ---
PT ALERT AND ORIENTED X 4. UP IN CHAIR MOST OF EVENING. ASSISTED TO BED AT HS WITH ASSIST X 1. IV INFUSING ORDERED. PT TAKES MEDS CRUSHED IN PUDDING. SUPERVISION WITH ANY INTAKE. PT DENIES PAIN OR DISCOMFORT. BED ALARM ON FOR SAFETY. PT APPEARS TO BE SLEEPING ON HOURLY ROUNDS.
[2021-02-24 08:00] VITALS: BP 93/60
--- NOTE | 2021-02-24 10:45 | NUR ---
PT REMAINS HYPERNATREMIC, AND PER LEAF BLENDER GIL GUAN, NURSING SHOULD PUSH PO FLUID INTAKE MUCH POSSIBLE, AND AVOID PUDDINGS, GIVING MEDS IN PUDDING THICK WATER INSTEAD. ALSO, PER LEAF BLENDER, PT CAN BE UNHOOKED FROM IV FLUIDS AND GIVEN A SL DURING THERAPIES TO MAXIMIZE FUNCTION AND PRESERVE IV ACCESS.
--- NOTE | 2021-02-24 15:00 | NUR ---
ASSUMED C/O PT AT APPROX 1100. PT WILLINGLY WORKS WITH PT. WALKED IN HALLWAY WITH WALKER AND SBA. STEADY GAIT NOTED. PT ON PUDDING THICK LIQUIDS AND PUREE FOODS. IVF ORDERED. WILL CONTNIUE TO MONITOR.
[2021-02-24 15:20] VITALS: BP 138/73
[2021-02-24 19:34] VITALS: BP 127/68
--- NOTE | 2021-02-25 00:18 | NUR ---
PT ALERT AND ORIENTED X 4. IV INFUSING ORDERED. PT TAKES MEDS CRUSHED IN PUDDING WITHOUT DIFFICULTY. PT DENIES PAIN OR DISCOMFORT. BED ALARM ON FOR SAFETY. PT APPEARS TO BE SLEEPING ON HOURLY ROUNDS.
[2021-02-25 07:06] LABS: ALBUMIN 2.9 g/dL (3.4-5.0); CALCIUM 8.2 mg/dL (8.5-10.1); CREATININE 1.1 mg/dL (0.7-1.3); TOTAL BILIRUBIN 0.9 mg/dL (0.2-1.0); TOTAL PROTEIN 6.5 g/dL (6.4-8.2)
[2021-02-25 08:00] VITALS: BP 128/74
--- NOTE | 2021-02-25 08:11 | NUR ---
Cont working wit therapy. Will cont following as needed for dc needs.
--- NOTE | 2021-02-25 19:24 | NUR ---
CONTNIUE WITH POC
[2021-02-25 19:34] VITALS: BP 112/67
--- NOTE | 2021-02-26 01:19 | NUR ---
PT ASSESSMENT COMPLETED AND VSS. MEDS GIVEN ORDERED AND WELL TOLERATED. FALL PRECAUTIONS IN PLACE. PUDDING THICK WATER BY SPOON USING SWALLOWING PROTOCOL PROVIDED. PIV STOPPED WORKING. PT A HARD STICK. ATTEMPTED TO PLACE IV. NOT SUCCESSFUL. HOUSE SUP PLACE IV AND FLUIDS RUNNING. PT SLEEPING WELL. ASST WITH REPOSITION FOR COMFORT. WILL CONTINUE TO MONITOR FREQUENTLY. PT VOIDING DARK YELLOW URINE PER URINAL.
[2021-02-26 08:00] VITALS: BP 128/56
--- NOTE | 2021-02-26 09:01 | NUR ---
PT SITTING UP IN W/C THIS AM EATING BREAKFAST. PT TOLERATING PUREED DIET. PT STILL HAS PUDDING THICK LIQUIDS. PT HAS IV FLUIDS RUNNING TO LEFT HAND. PT WITHDRAWN AND NOT VERY TALKATIVE THIS AM. PT TOOK MEDS IN ENSURE PUDDING. IV FLUIDS RUNNING TO LEFT HAND.
--- NOTE | 2021-02-26 15:58 | NUR ---
PT HAS HAD A GOOD DAY TODAY. PT HAS BEEN RESTING ON AND OFF THERAPY TIMES.
[2021-02-26 19:21] VITALS: BP 125/72
--- NOTE | 2021-02-26 23:54 | NUR ---
PT ASSESSMENT COMPLETED AND VSS. MEDS GIVEN ORDERED AND WELL TOLERATED. FALL PRECAUTIONS IN PLACE. ASST WITH REPOSITION FOR COMFORT. IVF RUNNING. PT RESISTANT TO THE PUDDING THICK LIQUID. SLEEPING WELL. WILL CONTINUE TO MONITOR FREQUENTLY.
[2021-02-27 08:10] VITALS: BP 132/72
--- NOTE | 2021-02-27 09:13 | NUR ---
ASSISTED PT FROM BED TO BSC THIS AM AND PT VOIDED. PT TRANSFERED TO W/C WITHOUT ANY ISSUES. SLIGHT WEAKNESS TO RT SIDE. PT ABLE TO BEAR WEIGHT TO RT LEG AND TRANSFER. PT ABLE TO FEED SELF. PT TOOK MEDS CRUSHED IN PUDDING. PT HAS PUDDING THICK LIQUIDS ON TABLE. PT LUNGS CLEAR.
--- NOTE | 2021-02-27 13:07 | NUR ---
PT FED SELF LUNCH. PT IS EATING THE POTATOES AND SOME MEAT, PT DIDN'T WANT THE FRUIT. PT CONVERSING MORE WITH STAFF TODAY.
[2021-02-27 19:32] VITALS: BP 142/61
--- NOTE | 2021-02-28 01:56 | NUR ---
ASSUMED CARES AT 1900, PT COMFORTABLY LAYING IN BED, REPORTS NO PAIN OR DISCOMFORT, CONCERNED ABOUT DIET, EDUCATION PROVIDED, REMAINS ON THICKENED LIQUID, COMPLIANT TO TX, NO ADVERSE REACTION NOTED, IV FLUID INFUSING, LINE PATENT, WILL CONTIUE TO MONITOR.
[2021-02-28 05:38] LABS: ABSOLUTE NEUTROPHILS 4.3 thou/uL (1.4-8.2); BASOPHILS 0.4 % (0.0-2.0); EOSINOPHILS 1.2 % (0.0-3.0); HEMATOCRIT 39.1 % (42.0-52.0); HEMOGLOBIN 12.7 gm/dL (14.0-18.0); LYMPHOCYTES 23.6 % (24.0-44.0); MCH 29.2 pg (26.0-34.0); MCHC 32.6 g/dL (28.0-37.0); MCV 89.6 fL (80.0-100.0); MONOCYTES 9.2 % (1.0-8.0); PLATELET COUNT 148 thou/uL (150-400); POLYS 65.6 % (36.0-66.0); RBC 4.36 mil/uL (4.50-6.00); WBC 6.6 thou/uL (4.0-11.0)
[2021-02-28 05:58] LABS: CALCIUM 8.6 mg/dL (8.5-10.1); CREATININE 1.1 mg/dL (0.7-1.3); POTASSIUM 4.1 mmol/L (3.5-5.1)
--- NOTE | 2021-02-28 08:00 | NUR ---
PT LEFT TO SPEECH THERAPY TO HAVE EVAL ON SWALLOWING. PT WAS AWOKE FROM SLEEPING. PT UP TO [facility] X1 ASSIST TO VOID. PT DIDN'T SEEM VERY THRILLED ABOUT TREATMENT.
--- NOTE | 2021-02-28 09:00 | NUR ---
PT WAS ABLE TO DRINK THIN LIQUIDS, PT WANTED A POP TO DRINK. PT DRANK WITHOUT ANY ISSUES. PT TOOK MEDS WHOLE IN PUDDING, PT SEEMED TO HAVE SWALLOWING ISSUE WITH WHOLE IN PUDDING, NO COUGH NOTED. PT WAS ABLE TO SWALLOW THIN LIQUID TO GET MEDS DOWN. PT SITTING UP IN W/C.
[2021-02-28 09:10] VITALS: BP 159/72
[2021-02-28 16:27] VITALS: BP 151/95
--- NOTE | 2021-03-01 00:05 | NUR ---
PT ASSESSMENT COMPLETED AND VSS. MEDS GIVEN ORDERED AND WELL TOLERATED. FALL PRECAUTIONS IN PLACE. SUPPORTIVE SON AT BEDSIDE EARLY DURING THE SHIFT. VOIDING MODERATE AMOUNT OF YELLOW URINE PER URINAL. ASST WITH REPOSITION FOR COMFORT. PT TOLERATING THINS. SLEEPING WELL. WILL CONTINUE TO MONITOR FREQUETNLY.
[2021-03-01 10:01] VITALS: BP 138/76
--- NOTE | 2021-03-01 12:44 | NUR ---
Team meeting, recommendation: diet upgrade to puree with thin liquids. set up for dressing. needs queuing for swallowing. Moderate cog and severe memory deficits. Need assist with medication and finance. HH (pt, ot, st with vital stim, bath aid and sw). Family to arrange suggested private duty. DC pushed back to 03/10. Handrails, grab bars and tub bench were discussed with OT and daughter John. Next insurance review is on 03/04/21.
[2021-03-01 19:26] VITALS: BP 116/66
--- NOTE | 2021-03-02 02:32 | NUR ---
ASSUMED CARE OF PT AT 1915 ON 03/01/21. PT IS A&OX4. IS ON ROOM AIR. DENIES PAIN. IS STABLE. IS UP WITH 1 ASSIST, GB, WALKER. FALL PRECAUTIONS & HOURLY ROUNDING CONTINUED THIS SHIFT. LABS & VITALS REVIEWED. FLUIDS ENCOURAGED. CONTINUES TO TAKE MEDS WHOLE IN APPLESAUCE WITH DOUBLE SWALLOW PRECAUTIONS. PT IS CURRENTLY ASLEEP. IS ABLE TO TURN SELF IN BED. WILL CONTINUE TO MONITOR.
[2021-03-02 08:00] VITALS: BP 114/60
[2021-03-02 12:00] VITALS: BP 114/60
--- NOTE | 2021-03-02 12:12 | NUR ---
PT A&OX4 PT UP TO BATHROOM WITH WALKER AND SBA. PT NOW ON THIN LIQUIDS. PT STILL HAS TO DO DOUBLE SWALLOW AFTER EACH BITE OR DRINK. PT STILL HAS TO HAVE 100% SUPERVISION WITH EATING. PT PILLS ARE NOW GIVEN WHOLE IN APPLESAUCE. PT R HEMIPERISIS IS IMPROVED. WILL CONTINUE TO MONITOR.
--- NOTE | 2021-03-02 15:32 | NUR ---
Curly spoke with daughter John via phone call, she agrees with dcp. Family arranging private duty for 4-5 hours during the day time and then he will stay over night with his daughter or she will stay with him at his house. Family reviewing the hh list of choice. Will cont following as needed. DC 03/10/21
[2021-03-02 19:24] VITALS: BP 111/64
--- NOTE | 2021-03-03 04:26 | NUR ---
PT ASSESSMENT COMPLETED AND VSS. MEDS GIVEN ORDERED AND WELL TOLERATED. ASST WITH REPOSITION FOR COMFORT. PT IS ABLE TO PULL HIMSELF UP IN THE BED. FALL PRECAUTIONS IN PLACE. VOIDING MODERATE AMOUNT OF URINE PER URINAL. SLEEPING WELL. WILL CONTINUE TO MONITOR FREQUENTLY.
[2021-03-03 08:00] VITALS: BP 123/62
[2021-03-03 10:32] VITALS: BP 123/62
[2021-03-03 16:00] VITALS: BP 116/50
[2021-03-03 19:40] VITALS: BP 115/61
--- NOTE | 2021-03-03 21:59 | NUR ---
ASSUMED CARE OF PT AT 1915. PT IS A&OX4. IS ON ROOM AIR. IS STABLE. DENIES PAIN. IS UP WITH 1 ASSIST, GB, WALKER. FALL PRECAUTIONS & HOURLY ROUNDING CONTINUED THIS SHIFT. LABS & VITALS REVIEWED. DOUBLE SWALLOW PRECAUTIONS MAINTAINED. PT IS ABLE TO REPOSITION SELF IN BED. IS CURRENTLY ASLEEP. CALL LIGHT WITHIN REACH. WILL CONTINUE TO MONITOR.
[2021-03-04 08:00] VITALS: BP 128/55
--- NOTE | 2021-03-04 08:00 | NUR ---
PT COMPLAINS OF FOOT PAIN TO LEFT FOOT. NOTICED MEDIAL SIDE OF FOOT IS RED AND SWOLLEN BY BIG TOE. PT STATED IF FEELS LIKE A BURING PAIN AND 10 ON 1-10 SCALE. PT DIDN'T WANT GRIPPER SOCK ON LEFT FOOT. PT KEEPING SHEETS OFF HIS FOOT.
--- NOTE | 2021-03-04 09:10 | NUR ---
PT IN ROOM PACKING AND YELLING AT STAFF TO GET OUT. PT UPSET AND STATED NONE OF YOUR BUISNESS PT CLOSING HIS DRAWERS WITH FORCE AND PT STATED HE IS PAYING INSURANCE AND TO GET OUT OF HIS ROOM. PT STATED HE IS TRYING TO GET HIS DTR TO COME AND GET HIM.
--- NOTE | 2021-03-04 09:15 | NUR ---
PT SITTING UP IN THE W/C. PT TOOK MEDS WHOLE IN APPLESAUCE. PT TOLERATED MEDS WITHOUT ANY ISSUES. PT WORKING WITH THERAPY AT THIS TIME.
--- NOTE | 2021-03-04 14:34 | NUR ---
Still waiting to here from insurance if they have approved more rehab days. Discussed with COMPUTER AIDED DESIGN OPERATOR, no anticipated dc today or over the weekend. Will cont. following as needed. CM provided update to daughter John.
[2021-03-04 19:40] VITALS: BP 128/83
--- NOTE | 2021-03-05 00:28 | NUR ---
PT ASSESSMENT COMPLETED AND VSS. MEDS GIVEN ORDERED AND WELL TOLERATED. FALL PRECAUTIONS IN PLACE. ASST WITH REPOSITION FOR COMFORT. PT WAS ABLE TO PULL HIMSELF UP IN BED. PT VOIDING MODERATE AMOUNT PER URINAL. SLEEPING WELL. WILL CONTINUE TO MONITOR FREQUENTLY.
[2021-03-05 05:35] LABS: BASOPHILS 0.5 % (0.0-2.0); EOSINOPHILS 2.3 % (0.0-3.0); HEMATOCRIT 40.2 % (42.0-52.0); HEMOGLOBIN 12.9 gm/dL (14.0-18.0); LYMPHOCYTES 26.4 % (24.0-44.0); MCH 28.7 pg (26.0-34.0); MCHC 32.1 g/dL (28.0-37.0); MCV 89.3 fL (80.0-100.0); MONOCYTES 8.2 % (1.0-8.0); PLATELET COUNT 156 thou/uL (150-400); POLYS 62.6 % (36.0-66.0); RDW 14.1 % (10.5-14.5); WBC 6.4 thou/uL (4.0-11.0)
[2021-03-05 06:00] LABS: CALCIUM 8.8 mg/dL (8.5-10.1); MAGNESIUM 2.1 mg/dL (1.8-2.4)
[2021-03-05 08:06] VITALS: BP 141/64
--- NOTE | 2021-03-05 17:21 | NUR ---
PT ALERT AND ORIENTED TIMES FOUR. VSS. PT DENIES PAIN/SOA. PT TOLERATES MEDS AND MEALS. PT WORKED WELL WITH PT/OT TODAY. PT DAUGHTER AT BEDSIDE THIS MORNING. PT PROGRESSING TOWRADS POC GOALS.
[2021-03-05 19:45] VITALS: BP 130/72
--- NOTE | 2021-03-06 03:49 | NUR ---
PT LYING IN BED. VOIDING PER URINAL. DENIES NEED FOR PAIN MEDICATION. RESTING COMFORTABLY. NO NEEDS VOICED. CALL LIGHT WITHIN REACH. FREQUENT OBSERVATION.
[2021-03-06 07:50] VITALS: BP 150/77
--- NOTE | 2021-03-06 10:03 | NUR ---
PT UP TO BATHROOM TO VOID AND BM, PT STEADY WITH WALKER. PT STATED HE TOLD PITCH GATHERER TO TAKE HIS PANTS OFF AND BRIEF, PT STATED THEY NEVER DID TAKE OFF HIS JOGGING PANTS. PT STATED HE HAS HAD THE SAME CLOTHES ON FOR 3 DAYS. ASSISTED PT WITH CHANGING BRIEF, AND PUTTING ON A NEW PAIR OF CLOTHES. PT STATED PAIN TO LEFT FOOT IS BETTER, PT HAS YELLOW SOCK ON FEET BILATERALY AND ABLE TO WALK WITHOUT PAIN. PT TOOK MEDS IN APPLESAUCE WITHOUT ANY ISSUES.
--- NOTE | 2021-03-06 13:20 | NUR ---
PT BACK TO BED AFTER SITTING UP SINCE BREAKFAST. PT RESTING WITH EYES CLOSED AT THIS TIME.
[2021-03-06 19:14] VITALS: BP 103/61
--- NOTE | 2021-03-06 23:42 | NUR ---
PT ASSESSMENT COMPLETED AND VSS. MEDS GIVEN ORDERED AND WELL TOLERATED. FALL PRECAUTIONS IN PLACE. ASST PT WITH REPOSITION. PT PULLS HIMSELF UP IN THE BED. VOIDING MODERATE AMOUNT PER URINAL. WARM BLANKET PROVIDED FOR COMFORT. PT HOPEING THAT HE WILL DO OK AT DISCHARGE. SLEEPING WELL. WILL CONTINUE TO MONITOR FREQUENTLY.
[2021-03-07 08:00] VITALS: BP 138/58
--- NOTE | 2021-03-07 11:00 | NUR ---
[facility] is who family [facility], cm sent referral, they called back and [facility] is full cant not meet his hh needs. Referral sent to [facility] ok by daughter John who will be picking him up after she gets off work today around 5pm. [facility] has accepted. [facility]- he has one already at home per John. Dc orders faxed to [facility].
[2021-03-07] MEDS ORDERED: ALLOPURINOL 30300 M1 PO (12:32)
[2021-03-07] MEDS ORDERED: LIPITOR10 MG PO (12:32)
[2021-03-07] MEDS ORDERED: CARVEDILOL3.125 MG PO (12:32)
[2021-03-07] MEDS ORDERED: FOLIC ACID1 MG PO (12:32)
[2021-03-07] MEDS ORDERED: VITAMIN D325 MC2 PO (12:32)
[2021-03-07 13:46] VITALS: BP 103/61
[2021-03-07 17:21] VITALS: BP 103/61
--- NOTE | 2021-03-07 18:09 | NUR ---
Pt A & O x3. Pt worked with therapy this shift. PT VS stable. Pt received medications as ordered. Pt is room air. Pt is x 1 assist. Pt uses walker and gait belt and wheelchair for mobililty. Pt received discharge orders to home. Pt discharge instructions reviewed with pt and daughter. They verbalized understanding and signed instructions. pt wheeled in wheeled chair by staff to enterence with personal belongings and left hospital without incident in private vehicle.
== END 2021-03-07 18:00 | disposition home health service (06) | DRG 65 ==
PROVIDERS: Hospitalist; Nurse Practitioner; Nurse Practitioner Family; ADMIT Physical Medicine & Rehabilitation; ATTEND Physical Medicine & Rehabilitation
DX: I63.9 Cerebral infarction, unspecified (principal); I13.0 Hypertensive heart and chronic kidney disease with heart failure and stage 1 through stage 4 chronic kidney disease, or unspecified chronic kidney disease; N17.9 Acute kidney failure, unspecified; E87.0 Hyperosmolality and hypernatremia; G81.91 Hemiplegia, unspecified affecting right dominant side; I42.9 Cardiomyopathy, unspecified; I50.42 Chronic combined systolic (congestive) and diastolic (congestive) heart failure; M79.641 Pain in right hand; R13.10 Dysphagia, unspecified; R47.1 Dysarthria and anarthria; M10.9 Gout, unspecified; I25.10 Atherosclerotic heart disease of native coronary artery without angina pectoris; E53.8 Deficiency of other specified B group vitamins; I65.23 Occlusion and stenosis of bilateral carotid arteries; E78.5 Hyperlipidemia, unspecified; E86.0 Dehydration; H40.9 Unspecified glaucoma; F01.50 Vascular dementia, unspecified severity, without behavioral disturbance, psychotic disturbance, mood disturbance, and anxiety; N18.9 Chronic kidney disease, unspecified; Z60.2 Problems related to living alone; Z85.46 Personal history of malignant neoplasm of prostate; Z79.01 Long term (current) use of anticoagulants; Z79.899 Other long term (current) drug therapy; Z79.82 Long term (current) use of aspirin; I25.2 Old myocardial infarction; Z86.73 Personal history of transient ischemic attack (TIA), and cerebral infarction without residual deficits
CPT/HCPCS: 10112